=== PATIENT | female | born 1985 | race Caucasian/White ===

== ENCOUNTER 2017-05-11 21:13 | Emergency (ER) | payer OTHER, SELFPAY | END 2017-05-11 22:13 | disposition home or self-care (01) | LOC: ERS 21:13 | DX: K02.9 Dental caries, unspecified (principal) | CPT/HCPCS: 99282 ==

== ENCOUNTER 2018-08-14 16:07 | Emergency (ER) | payer OTHER, SELFPAY | END 2018-08-14 16:49 | disposition home or self-care (01) | LOC: ERS 16:07 | DX: K02.9 Dental caries, unspecified (principal); I10 Essential (primary) hypertension; F41.9 Anxiety disorder, unspecified; F17.210 Nicotine dependence, cigarettes, uncomplicated | CPT/HCPCS: 99282 ==

== ENCOUNTER 2018-08-15 13:44 | Emergency (ER) | payer OTHER ==
[~2018-08-15 13:44] MED LIST: ISOVUE-370 76%-LOCM 1 ML ONE
[2018-08-15 14:54] LABS: Pregnancy Test - Urine (BHCG) Negative (Negative); Pregu Control Background? CLEAR/WHITE (CLR/WHITE); Pregu Control Bar Appear? YES (CONTROL BAR)
[2018-08-15] MEDS ORDERED: Clindamycin/D5W 900 mg/50 ml Premix Bag ONE (15:12)
[2018-08-15] MEDS ORDERED: Ketorolac Tromethamine 30 MG/ML VIAL ONE (15:43)
--- NOTE | 2018-08-15 17:30 | CT ---
CT NECK: Date: 08-15-18 Comparison: None. History: Dental pain that began on evening, lower mandibular pain on the left. Technique: Axial CT imaging at 2.5 mm intervals from the skull base through the lung apices with intr avenous contrast. Coronal and sagittal reformatted imaging obtained. FINDINGS: The imaged brain parenchyma is grossly unremarkable. The retro, antral, and parapharyngeal fat appear s clear bilaterally. The parotid glands and submandibular glands are grossly unremarkable. The imaged lung apices are within normal limits. Region of the tonsillar pillars, epiglottis and preepiglottic fat, hyoid bone, thyroid cartilage, cri coid cartilage and thyroid gland appear unremarkable. Vascular structures of the neck appear grossly unremarkable. There is submandibular and perimandibular soft tissue inflammatory change on the left with thickening of the fascia and induration of the subcutaneous fat with skin thickening noted, most prominent shakira cent to the mandible on the left. Numerous prominent dental caries are noted involving posterior left mandibular teeth, which includes 1st and 2nd molars. Periapical abscess formation is noted at the base of the 1st left mandibular mola r. There is adjacent gingival inflammatory change along the outer cortex of the mandible in this jenise on. No drainable soft tissue abscess is noted. Enlarged level I lymph nodes are noted bilaterally, left greater than right, measuring up to 1.3 cm s hort axis dimension. Multiple mild enlarged level 2A and level 2B lymph nodes bilaterally. Review of the osseous structures demonstrates no worrisome lytic or blastic lesion. IMPRESSION: 1. There is inflammatory change suggesting cellulitis along the left perimandibular region which appe ars to be odontogenic in nature as there are multiple dental caries involving the posterior left daljit ibular teeth with a periapical abscess involving the left mandibular first molar. Gingival inflammato ry change along the outer aspect of the mandible in this region consistent with odontogenic infection . POS: [facility]
== END 2018-08-15 16:31 | disposition home or self-care (01) ==
LOC: ERS 13:44
DX: K03.81 Cracked tooth (principal); K04.7 Periapical abscess without sinus; I10 Essential (primary) hypertension; F41.9 Anxiety disorder, unspecified; F17.210 Nicotine dependence, cigarettes, uncomplicated
CPT/HCPCS: 70491; 81025; 96365; 96375; J1885; J3490

== ENCOUNTER 2019-01-20 09:39 | Emergency (ER) | payer OTHER ==
[2019-01-20] MEDS ORDERED: Ondansetron ODT 4 MG TAB ONE (10:21)
[2019-01-20 11:17] LABS: Hemoglobin 14.3 g/dL (12.0-16.0); Mean Corpuscular HGB CONC 34.1 g/dL (32.0-36.0); Mean Corpuscular Hemoglobin 32.4 pg (27.0-31.0); Mean Corpuscular Volume 95.1 fL (78.0-98.0); Mean Platelet Volume 6.9 fL (7.4-10.4); Platelet Count 240 thou/uL (130-400); RBC Distribution Width 12.5 % (11.5-14.5); Red Blood Cell (RBC) Count 4.41 mill/uL (4.20-5.40); White Blood Cell (WBC) Count 9.1 thou/uL (4.8-10.8)
[2019-01-20 11:34] LABS: ALT (SGPT) 190 U/L (8-55); AST (SGOT) 110 U/L (5-34); Albumin 3.8 g/dL (3.5-5.0); Alkaline Phosphatase 55 U/L (40-150); Anion Gap 11 mmol/L (10-20); BUN (Urea Nitrogen) 10 mg/dL (7.0-18.7); Bilirubin, Total 0.8 mg/dL (0.2-1.2); Calc. Creatinine Clearance 0 mL/min (70-130); Calcium 9.2 mg/dL (7.8-10.44); Carbon Dioxide 25 mmol/L (22-29); Chloride 105 mmol/L (98-107); Estimated GFR-MDRD Greater than 90; Globulin 2.8 g/dL (2.4-3.5); Glucose 86 mg/dL (70-105); Potassium 3.8 mmol/L (3.5-5.1); Protein, Total 6.6 g/dL (6.0-8.3); Sodium 137 mmol/L (136-145)
[2019-01-20 11:36] LABS: Bilirubin Small (Negative); Blood, Urine Negative (Negative); Clarity CLEAR (Clear); Glucose, Urine (Dipstick) Negative (Negative); Leukocyte Small (Negative); Nitrite Negative (Negative); Protein, Urine (Dipstick) Trace mg/dL (Neg-Trace); Specific Gravity, Urine 1.027 (1.002-1.036); pH, Urine 7.5 (5.0-9.0)
[2019-01-20 11:39] LABS: Bacteria/HPF None Seen HPF (None Seen); Hyaline Casts/LPF 0-3 HYALINE CAST LPF (0-3 Hyaline); Pathc Cast-AUWi Flag 0.27 (0-2.49); WBC/HPF 0-3 HPF (0-3)
[2019-01-20 11:43] LABS: Pregnancy Test - Urine (BHCG) Negative (Negative); Pregu Control Background? CLEAR/WHITE (CLR/WHITE); Pregu Control Bar Appear? YES (CONTROL BAR); Specific Gravity 1.003 (1.002-1.036)
[2019-01-20 12:18] LABS: Band 3 % (5-11); Eosinophils 3 % (0-10); Lymphocytes 48 % (21-51); MDiff Complete? YES; Monocytes 6 % (0-10); Neutrophil 20 % (42-75); RBC Morphology Normal; Reactive Lymphocytes 20 % (0-10)
== END 2019-01-20 12:26 | disposition home or self-care (01) ==
LOC: ERS 09:39
DX: B34.9 Viral infection, unspecified (principal); R11.2 Nausea with vomiting, unspecified; I10 Essential (primary) hypertension; F41.9 Anxiety disorder, unspecified; F17.210 Nicotine dependence, cigarettes, uncomplicated
CPT/HCPCS: 36415; 80053; 81003; 81015; 81025; 85025; 85060; 99284; Q0162

== ENCOUNTER 2024-04-26 18:17 | Emergency (ER) | payer OTHER, SELFPAY ==
[2024-04-26] MEDS ORDERED: Acetaminophen 500 MG TAB ONE (19:09)
[2024-04-26] MEDS ORDERED: Ondansetron PF 4 MG/2 ML Vial ONE (19:18)
[2024-04-26] MEDS ORDERED: Ketorolac Tromethamine 30 MG (1 mL) VIAL ONE (19:18)
[2024-04-26 19:53] LABS: Influenza A by NAA Not Detected (NotDetected); Influenza B by NAA Not Detected (NotDetected); SARS-CoV-2 NAA Rapid Test Not Detected (NotDetected)
[2024-04-26] MEDS ORDERED: Sodium Chloride 0.9% 100 ML ONE (20:39)
[2024-04-26] MEDS ORDERED: cefTRIAXone (ROCEPHIN) 2 GM VIAL ONE (20:39)
[2024-04-26] MEDS ORDERED: Azithromycin 500 MG VIAL ONE (20:39)
[2024-04-26 20:40] LABS: #Basophils 0.04 10x3/uL (0.0-0.2); %Basophils 0.5 % (0.0-1.0); %Eosinophils 2.3 % (0.0-10.0); %Monocytes 7.1 % (0.0-10.0); %Neutrophils 74.9 % (42.0-75.0); Hematocrit 42.9 % (36.0-47.0); Hemoglobin 15.2 g/dL (12.0-16.0); Mean Corpuscular HGB CONC 35.4 g/dL (32.0-36.0); Mean Corpuscular Hemoglobin 33.9 pg (27.0-31.0); Mean Corpuscular Volume 95.8 fL (78.0-98.0); Mean Platelet Volume 9.4 fL (7.4-10.4); Platelet Count 266 10x3/uL (130-400); RBC Distribution Width 12.4 % (11.5-14.5); Red Blood Cell (RBC) Count 4.48 mill/uL (4.20-5.40)
[2024-04-26 20:58] LABS: ALT (SGPT) 27 U/L (8-55); AST (SGOT) 15 U/L (5-34); Albumin 3.6 g/dL (3.5-5.0); Alkaline Phosphatase 51 U/L (40-110); Anion Gap 13 mmol/L (10-20); BUN (Urea Nitrogen) 9 mg/dL (7.0-18.7); Bilirubin, Total 0.6 mg/dL (0.2-1.2); Calc. Creatinine Clearance 0 mL/min (70-130); Calcium 9.4 mg/dL (7.8-10.44); Carbon Dioxide 22 mmol/L (22-29); Chloride 108 mmol/L (98-107); Estimated GFR 103; Globulin 3.5 g/dL (2.4-3.5); Glucose 93 mg/dL (70-105); Potassium 4.1 mmol/L (3.5-5.1); Protein, Total 7.1 g/dL (6.0-8.3); Sodium 139 mmol/L (136-145)
== END 2024-04-26 23:33 | disposition home or self-care (01) ==
LOC: ERS 18:17
DX: J18.9 Pneumonia, unspecified organism (principal); I10 Essential (primary) hypertension; F17.210 Nicotine dependence, cigarettes, uncomplicated
CPT/HCPCS: 36415; 71046; 80053; 83605; 85025; 87040; 96361; 96365; 96367; 96375; J0456; J0696; J1885; J2405

== ENCOUNTER 2024-05-28 01:40 | Emergency (ER) | payer SELFPAY ==
[2024-05-28 03:05] LABS: #Basophils Less than 0.03 10x3/uL (0.0-0.2); %Basophils 0.3 % (0.0-1.0); %Eosinophils 1.1 % (0.0-10.0); %Neutrophils 49.4 % (42.0-75.0); Hematocrit 38.7 % (36.0-47.0); Hemoglobin 13.7 g/dL (12.0-16.0); Mean Corpuscular HGB CONC 35.4 g/dL (32.0-36.0); Mean Corpuscular Hemoglobin 32.7 pg (27.0-31.0); Mean Corpuscular Volume 92.4 fL (78.0-98.0); Mean Platelet Volume 9.5 fL (7.4-10.4); Platelet Count 268 10x3/uL (130-400); RBC Distribution Width 12.9 % (11.5-14.5); Red Blood Cell (RBC) Count 4.19 mill/uL (4.20-5.40)
[2024-05-28 03:22] LABS: ALT (SGPT) 28 U/L (8-55); AST (SGOT) 17 U/L (5-34); Albumin 3.6 g/dL (3.5-5.0); Alkaline Phosphatase 47 U/L (40-110); Anion Gap 12 mmol/L (10-20); BUN (Urea Nitrogen) 12 mg/dL (7.0-18.7); Bilirubin, Total 0.6 mg/dL (0.2-1.2); Calc. Creatinine Clearance 0 mL/min (70-130); Calcium 9.7 mg/dL (7.8-10.44); Carbon Dioxide 19 mmol/L (22-29); Chloride 107 mmol/L (98-107); Estimated GFR 105; Globulin 3.1 g/dL (2.4-3.5); Glucose 89 mg/dL (70-105); Potassium 3.4 mmol/L (3.5-5.1); Protein, Total 6.7 g/dL (6.0-8.3); Sodium 135 mmol/L (136-145)
== END 2024-05-28 04:10 | disposition home or self-care (01) ==
LOC: ERS 01:40
DX: R06.02 Shortness of breath (principal); F17.210 Nicotine dependence, cigarettes, uncomplicated; Z55.0 Illiteracy and low-level literacy
CPT/HCPCS: 36415; 71045; 80053; 85025; 85379; 93005